=== PATIENT | male | born 1965 | race Caucasian/White ===

== ENCOUNTER 2024-06-29 07:59 | Emergency (ER) | payer OTHER, SELFPAY ==
[2024-06-29] VITALS (7 sets, daily range): BP systolic 117–138; BP diastolic 77–88; BMI 33.2
[2024-06-29] MEDS: TYLENOL 650 MG PO (08:38)
[2024-06-29] MEDS: NSS 500 IV (08:39)
[2024-06-29] MEDS: ZOFRAN 4 MG IV (08:39)
--- NOTE | 2024-06-29 08:42 | ED.GENMED ---
History of Present Illness
General
Chief Complaint: Urinary Symptoms
Time Seen by Provider: 06/29/24 08:08
History of Present Illness
History of Present Illness:
Patient is a 58-year-old male with history of diabetes, hyperlipidemia presenting to the emergency department with urinary problems. Patient states that he just came back from [place] a few days ago when he started develop fevers body aches
congestion for the past 3 days. He is also been having nausea. He has been having decreased p.o. and is also not had a bowel movement the past 5 days. No prior abdominal surgeries. He is also been having difficulty urinating. No history of
prostate issues. States that has been having dysuria it is darker in color. He did have back pain yesterday. No chest pain or difficulty breathing. No leg swelling. He did talk to his primary care doctor yesterday who started him on Levaquin
for possible UTI.
Past History
Past History
ED Past Medical History: Negative IDDM
ED Past Surgical History: Negative Cardiac
Social History
Tobacco: Non-smoker
Alcohol: None
Drug: None
Personal:
Living: with family
Employment: Employed
Family History
Family History: Other (Noncontributory)
Phy Exam
Physical Exam
Physical Exam:
GENERAL: in no acute distress
HEENT: normocephalic, extraocular movements intact, dry oral mucosa
NECK: normal inspection
RESPIRATORY: no respiratory distress, clear to auscultation bilaterally
CARDIOVASCULAR: regular rate and rhythm
ABDOMEN/: soft, non-distended, non-tender to palpation, no rebound or guarding
EXTREMITIES: non-tender, no edema/swelling
NEUROLOGIC: awake and alert, moves all extremities
SKIN: warm
Course
Orders/Labs/Results
Orders:
Orders
06/29/24 08:19
Urinalysis Reflex To Culture Urgent
Date Specimen was Collected: 06/29/24
Time Specimen was Collected: 08:16
Urine Microscopic Reflex Cult Urgent
06/29/24 08:30
CT Abd/Pel (IV only)-DH only Urgent
Comment:
Reason For Exam: constipation, hematuria, diffuse abdominal pain
Acetaminophen [Tylenol] 650 mg PO NOW STA
Ondansetron Injectable [Zofran] 4 mg IV NOW STA
06/29/24 08:31
0.9% Sodium Chloride 500 ml [Nss] 500 ml IV BOLUS
06/29/24 08:32
COVID-19 Antigen Urgent
Source: Nasal Swab
Complete Blood Count/With Diff Urgent
Comprehensive Metabolic Panel Urgent
Thyroid profile [TSH Reflex To Free T4] Urgent
06/29/24 08:34
Influenza A+B Rapid Molecular Urgent
JONH Source: Nasal Swab
Specimen Description:
06/29/24 12:45
Gentamicin Sulfate [Gentamicin] 200 mg 0.9% Sodium Chloride [Nss] 50 ml IV NOW
Abnormal Lab Results
06/29/2424
08:19 08:32
WBC 16.8 H 10^3/uL
(4.8-10.8)
Abs Immat Gran (auto) 0.1 H 10^3/uL
(0-0.05)
Absolute Neuts (auto) 14.6 H 10^3/uL
(1.4-6.5)
Absolute Lymphs (auto) 1.0 L 10^3/uL
(1.2-3.4)
Absolute Monos (auto) 1.1 H 10^3/uL
(0.1-0.6)
Neutrophils % 87.0 H %
(42.2-75.2)
Lymphocytes % 6.0 L %
(20.5-51.1)
Glucose 211 H mg/dl
(70-99)
Total Bilirubin 1.7 H mg/dl
(0.2-1.3)
Total Protein 5.8 L g/dl
(6.3-8.2)
Urine Ketones 2+ A
(Negative)
Leukocyte Esterase Rfl Trace A
(Negative)
Urine Bacteria (Reflex) Few A
(Negative)
06/29/24 08:32
06/29/24 08:32
Vital Signs
Initial and Last Documented VS:
Initial Vital Signs
Temp Pulse Resp BP Pulse Ox
99.3 F 110 16 138/88 98
06/29/24 08:01 06/29/24 08:01 06/29/24 08:01 06/29/24 08:01 06/29/24 08:01
Last Documented Vital Signs
Temp Pulse Resp BP Pulse Ox
99.3 F 98 16 121/85 98
06/29/24 08:01 06/29/24 11:30 06/29/24 08:01 06/29/24 12:00 06/29/24 11:30
MDM/Problems Addressed
Differential Diagnosis Includes:
Patient is a 58-year-old man with history of diabetes, hyperlipidemia presenting to the emergency department with URI symptoms difficulty urinating and constipation for the past 5 days. Vitals here notable for temperature of 99.3. Exam does show
dry oral mucosa with a mostly benign abdomen. Bladder scan was in the 60s and patient did urinate prior to. Differential is broad but consists of viral infection such as COVID or flu versus UTI versus kidney stone. Unclear etiology of
constipation but will check electrolytes and thyroid. History and exam not consistent with obstruction or malrotation or volvulus. Will check blood work viral swab CT scan. Will give fluids antiemetics and pain control.
*Critical Care Note
Total Time (30-74mins, 75-104mins- exclusive of procedures): Not Applicable
Update Note
Update Note:
On reevaluation patient resting comfortably. Blood work notable for leukocytosis. His BMP is normal. Urine with trace leuk esterase and some bacteria. CT scan with seminal vesiculitis. There are also incidental findings that patient was made
aware of. CT scan was noted to have a mildly complex cystic mass in the kidney. I discussed with radiology who states that is likely benign and not worrisome for an infection. I did discuss with urology. They are recommending treating as
prostatitis with Levaquin as well as Flomax. Recommending 1 dose of gentamicin prior to discharge.
Nursing called to bedside as patient is having difficulty urinating. Postvoid residual was 300 mL. I did discuss with urology who is in agreement with discharge with Maguire catheter in place. He is seeing urology on the . Strict return
precautions given. Will discharge
ED Attending Note
-
Portions of this chart may have been created with voice recognition software.� Occasional wrong word or��sound alike� substitutions may have occurred due to the inherent limitations of voice recognition software.
Discharge Plan
Departure
Patient Disposition: Home (Routine Discharge)
Date of Disposition: 06/29/24
Time of Disposition: 14:48
Patient with high blood pressure during this ER visit?: No
Discharge Problem:
Seminal vesiculitis
Prescriptions:
New
levofloxacin 750 mg tablet
750 mg PO DAILY 14 Days Qty: 14 0RF
tamsulosin [Flomax] 0.4 mg capsule
0.4 mg PO DAILY 30 Days Qty: 30 0RF
No Action
fexofenadine [Beatriz] 60 mg Tablet
60 mg PO DAILYPRN PRN (Reason: ALLERGIES)
cyanocobalamin (vitamin B-12) 1,000 mcg Tablet
1,000 mcg PO DAILY
Theragen Tablet
1 tab PO DAILY
levofloxacin 500 mg Tablet
500 mg PO DAILY
rosuvastatin [Crestor] 5 mg Tablet
5 mg PO QPM
Zepbound 10 mg/0.5 mL Pen Injector
10 mg SC WE
Referrals:
Stephen Alfaro DO [Family Provider] -
Activity Restrictions/Additional Instructions:
You were seen in the Emergency Department today. Please take the antibiotics as prescribed as well as Flomax once a day. Please follow-up with urology as scheduled. Please come back with any issues with your Maguire catheter.
We would like for you to follow up with your primary care physician for further evaluation. If you experience fever, worsening of your symptoms, or develop any other new or concerning symptoms, please return to the Emergency Department immediately.
Please see the attached sheet for additional information.
When a patient comes into the Emergency Department, many diagnostic studies such as x-rays & CT Scans are completed to identify injuries. During these diagnostic studies, there are sometimes things like cysts, nodules, tumors, etc. that are
'incidentally found' and seen on these studies. No further workup was required during your hospitalization for your incidental findings, but please follow-up with your Primary Care Physician/Specialist regarding the below incidental findings. Your
Primary Care Physician/Specialist will instruct you/guide you through any further workup.
Your incidental findings
3 well-defined pulmonary nodules are seen within the visualized lower lungs. Follow-up CT of the chest is recommended in 3 months
2 mm nephrolith within the central mid right kidney. Small right renal cysts.
Mildly complex cystic mass arising in the central mid left kidney, likely a benign Bosniak class II cystic mass. Further evaluation is advised with renal ultrasound.
Interventions
Interventions:
*Risk Screen - Suicide Last Done: 06/29/24 08:56
*General Assessment Last Done: 06/29/24 08:56
*Neglect/Abuse Screening Last Done: 06/29/24 08:56
ED-Male Genitourinary Assessment Last Done: 06/29/24 08:56
Discharge Date and Time
Print Language: [place]
[2024-06-29 08:45] LABS: % Basophils 0.2 % (0-2); % Eosinophils 0.2 % (0-6); % Immature Granulocytes 0.4 % (0-0.5); % Monocytes 6.2 % (1.7-9.3); Absolute Immature Granulocytes 0.1 10^3/uL (0-0.05); Absolute Monocytes 1.1 10^3/uL (0.1-0.6); Absolute Neutrophils 14.6 10^3/uL (1.4-6.5); Hematocrit 41.9 % (39.0-52.0); Hemoglobin 14.4 g/dL (13.0-18.0); Mean Corp Hgb Conc. 34.4 g/dL (33.0-37.0); Mean Corpuscular Hgb 29.8 pg (27.0-31.0); Mean Corpuscular Volume 86.6 fL (80.0-94.0); Mean Platelet Volume 9.9 fL (7.4-10.4); Nucleated Red Blood Cells % 0 % (-); Platelet Count 215 10^3/uL (130-400); Red Blood Cell Count 4.84 10^6/uL (4.70-6.10); Red Cell Dist. Width 12.4 % (11.5-14.5); White Blood Cell Count 16.8 10^3/uL (4.8-10.8)
[2024-06-29 08:45] LABS: Urine Albumin Negative (Neg - Trace); Urine Bilirubin Negative (Negative); Urine Character Clear (Clear); Urine Color Yellow; Urine Glucose Negative (Negative); Urine Ketone 2+ (Negative); Urine Leukocyte Trace (Negative); Urine Nitrite Negative (Negative); Urine Occult Blood Negative (Negative); Urine Urobilinogen Negative (Neg - 1+)
[2024-06-29 08:58] LABS: Urine Mucus Few; Urine Squamous Cell 0-2 /LPF (Few)
[2024-06-29 08:59] LABS: Urine Bacteria Few (Negative); Urine Red Blood Cell 0-2 /HPF (0-2)
[2024-06-29 09:03] LABS: COVID-19 Antigen Negative (Negative)
[2024-06-29 09:09] LABS: ALT (SGPT) 23 U/L (0-50); AST (SGOT) 20 U/L (17-59); Albumin 3.7 g/dl (3.5-5.0); Alkaline Phosphatase 68 U/L (38-126); Blood Urea Nitrogen 12 mg/dl (9-20); Carbon Dioxide 26 mmol/L (22-30); Chloride 103 mmol/L (98-107); Estimated Creatinine Clearance 95 ml/min; Glucose 211 mg/dl (70-99); Potassium 3.7 mmol/L (3.5-5.1); Sodium 139 mmol/L (135-145); Total Bilirubin 1.7 mg/dl (0.2-1.3); Total Protein 5.8 g/dl (6.3-8.2); eGFR > 60.00
[2024-06-29 09:39] LABS: TSH Reflex To Free T4 1.06 uIU/ml (0.47-4.68)
[2024-06-29] MEDS: GENTAMICIN 55 MG IV (13:31)
== END 2024-06-29 15:10 | disposition home or self-care (01) ==
LOC: EMR 07:59
PROVIDERS: EMERGENCY PHYSICIAN Student in an Organized Health Care Education/Training Program; FAMILY PHYSICIAN Family Medicine
DX: N49.0 Inflammatory disorders of seminal vesicle (principal); E11.9 Type 2 diabetes mellitus without complications; E78.5 Hyperlipidemia, unspecified; Z11.52 Encounter for screening for COVID-19
CPT/HCPCS: 99285; 96365; 96361; 96375; 51798; 51702; 74177; 80053; 81003; 81015; 84443; 85025; 87502; 87811; Q9967

== ENCOUNTER → 2025-10-01 07:12 | Outpatient (REF) | payer BC, SELFPAY | LOC: HWRAD 07:12 | PROVIDERS: ATTENDING PHYSICIAN Physician Assistant Medical; FAMILY PHYSICIAN Family Medicine; REFERRING PHYSICIAN Surgery | DX: R91.8 Other nonspecific abnormal finding of lung field (principal); N28.1 Cyst of kidney, acquired | CPT/HCPCS: 71250; 76775 ==